=== PATIENT | male | born 1955 ===

== ENCOUNTER 2023-10-18 12:34 | Emergency (ER) | payer OTHER ==
[2023-10-18] MEDS ORDERED: Orphenadrine Citrate 60 MG/2 ML VIAL ONE (13:28)
[2023-10-18] MEDS ORDERED: Ketorolac Tromethamine 30 MG (1 mL) VIAL ONE (13:29)
== END 2023-10-18 13:49 | disposition home or self-care (01) ==
LOC: ERS 12:34
DX: M54.41 Lumbago with sciatica, right side (principal); I10 Essential (primary) hypertension; E11.39 Type 2 diabetes mellitus with other diabetic ophthalmic complication; H42 Glaucoma in diseases classified elsewhere; Z55.6 Problems related to health literacy
CPT/HCPCS: 96372; 99283; J1885; J2360